=== PATIENT | male | born 1955 | race Caucasian/White ===

== ENCOUNTER 2017-04-21 00:08 | Emergency (ER) | payer MEDICARE, OTHER ==
[~2017-04-21] VITALS: Ht 172.7 cm; Wt 65.0 kg
[~2017-04-21 00:08] MED LIST: CIPR-231 PO; HYDR-3090 PO; LORA-302 PO; TAMS0.4C98 PO
[2017-04-21 00:18] VITALS: BP 169/78; PULSE 65; RESP 16; O2SAT 99
--- NOTE | 2017-04-21 00:33 | ED.REPORT ---
HPI-General Illness Date of Service Apr 21, 2017 ED Provider: Eugenio Palacios MD Pt is a 61 y/o transgender male-->female w/ a hx of kidney stones presenting to the ED c/o right flank pain onset 2 days ago. Pts pain began mid-lower abdominal and is now localized to the right flank. Pt has had similar pain previously with kidney stones. Pt describes the pain as dull and non-radiating. Pt c/o associated mild dysuria. Pt denies hematuria, fever, chills. Nursing Notes Stated Complaint: FLANK PAIN Chief Complaint: Male Abdominal Pain Nursing Notes Reviewed: Yes Allergies: Coded Allergies: No Known Allergies (Verified Allergy, Unknown, 01/02/16) Scheduled Ciprofloxacin (Cipro) 500 Mg Tablet 500 MG PO BID Tamsulosin (Flomax) 0.4 Mg Capsule 0.4 MG PO DAILY for kidney stone, stop once stone is passed Tamsulosin (Flomax) 0.4 Mg Capsule 0.4 MG PO DAILY Scheduled PRN Hydrocodone-Acetaminophen 5-300 mg (Hydrocodone-Acetaminophen 5-300 mg) 1 Each Tablet 1-2 TABLET PO Q4H PRN PRN For Pain Lorazepam (Ativan) 0.5 Mg Tablet 0.5 MG PO HS PRN PRN For Insomnia General Time Seen by MD: 00:28 Chief Complaint Other (flank pain) Hx Obtained From: Patient Arrived By: Walk-in Sudden in Onset?: No Onset Occurred: 2 days ago Symptom Duration: Since onset Location: : Abdomen Quality: Painful Severity: Current: Mild Severity: Maximum: Moderate Past Medical History Past Medical History PTSD Anxiety/Depression Kidney Stones x4 Past Surgical History Hernia repair R knee surgery Rhinoplasty No lithotripsy Smoking History Smoker Current Status UNK Social History Other Social History: Local resident Ambulatory Status Independent Review of Systems Full Review of Systems Constitutional: Denies: Chills, Fever Respiratory: Denies: Non-productive cough, Shortness of breath Cardiovascular: Denies: Chest pain, Dyspnea on exertion GI: Reports: Abdominal pain, Nausea, Denies: Vomiting Male: Reports Dysuria, Reports Flank pain Complete sys rev & neg: except as marked. Physical Exam Vital Signs Vital Signs Date Time Temp Pulse Resp B/P Pulse Ox O2 Delivery O2 Flow Rate FiO2 04/21/17 02:56 56 16 130/77 99 Room Air 04/21/17 00:18 36.6 65 16 169/78 99 Room Air Initial VS: Reviewed, Vital signs abnormal Head / Eyes: Atraumatic, Normocephalic, PERRL ENT: Mucous membranes moist, Conjunctiva normal, No scleral icterus Neck: Supple, Full range of motion Respiratory: Breath sounds normal, Clear to auscultation, No respiratory distress Cardiovascular: Regular rate & rhythm, Heart sounds normal, Intact distal pulses Extremities: Vascular intact, Neuro intact, No swelling Skin: Warm, Dry, No cyanosis Neurologic: Alert, Oriented, Nonfocal Psychiatric: Mood/affect normal, Behavior normal, Normal thought content General/Constitutional: Awake, Alert, No acute distress, Cooperative, Not toxic appearing Abdomen: Atraumatic, Soft, Non-tender, No guarding, No rebound, No distention Back: Full range of motion, Painless range of motion Mild left CVAT Interpretation & Diagnostics Lab Results Interpretation Result Diagram: 04/21/17 0028 04/21/17 0028 Test 04/21/17 00:28 04/21/17 01:30 White Blood Count 10.5th/mm3 (3.8-10.1) Red Blood Count 4.40mil/mm3 (4.40-5.80) Hemoglobin 13.9g/dL (13.8-17.2) Hematocrit 40.6% (41.0-50.0) Mean Corpuscular Volume 92.3fL (81-100) Mean Corpuscular Hemoglobin 31.6pg (27.0-35.0) Mean Corpuscular Hemoglobin Concent 34.2% (32.0-37.0) Red Cell Distribution Width 12.6% (12.3-15.4) Platelet Count 284bil/L (150-400) Neutrophils (%) (Auto) 71.0% (40-74) Lymphocytes (%) (Auto) 16.3% (14-46) Monocytes (%) (Auto) 9.9% (4-12) Eosinophils (%) (Auto) 2.2% (0-5) Basophils (%) (Auto) 0.4% (0-3) Sodium Level 139mEq/L (134-144) Potassium Level 3.8mEq/L (3.5-5.2) Chloride Level 100mEq/L (97-108) Carbon Dioxide Level 21mmol/L (18-29) Blood Urea Nitrogen 18mg/dL (6-24) Creatinine 0.62mg/dL (0.76-1.27) Estimat Glomerular Filtration Rate 141mL/min (>59) Glucose Level 95mg/dL (60-99) Calcium Level 9.2mg/dL (8.5-10.1) Magnesium Level 1.8mg/dL (1.6-2.6) Total Bilirubin 0.4mg/dL (0.0-1.2) Aspartate Amino Transf (AST/SGOT) 35U/L (0-50) Alanine Aminotransferase (ALT/SGPT) 33U/L (0-44) Alkaline Phosphatase 39U/L (25-160) Total Protein 6.8g/dL (6.4-8.4) Albumin 4.3g/dL (3.4-5.0) Lipase 36U/L (13-60) Urine Color Yellow (YELLOW) Urine Appearance Clear (CLEAR,HAZY) Urine pH 6.5 (5.0-8.0) Urine Specific [place] 1.015 (1.003-1.035) Urine Protein Negativemg/dL (NEG,TRACE) Urine Glucose (UA) Negativemg/dL (NEGATIVE) Urine Ketones 40mg/dL (NEGATIVE) Urine Occult Blood Large (NEGATIVE) Urine Nitrite Negative (NEGATIVE) Urine Bilirubin Negative (NEGATIVE) Urine Urobilinogen Normalmg/dL (NORMAL) Urine Leukocyte Esterase Negative (NEGATIVE) Urine RBC >50/hpf (0-2) Urine WBC 0-5/hpf (0-5) Urine Epithelial Cells Occasional/hpf (NONE-MOD) Urine Crystals None seen (NONE SEEN) Urine Bacteria Few/hpf (NONE-FEW) Urine Hyaline Casts None/lpf (NONE) Urine Granular Casts None seen (NONE SEEN) Urine Waxy Casts None seen (NONE SEEN) Urine Red Blood Cell Casts None seen (NONE SEEN) Urine White Blood Cell Casts None seen (NONE SEEN) Urine Mucus Present (None Seen) Urine Trichomonas None seen (NONE SEEN) Urine Yeast None (NONE SEEN) Urinalysis Comment None Urine Culture Reflexed Not indicated Hold Urine Received (Received) Re-Eval/Medical Decision Med Decision/Clinical Course Pt is a 61 y/o transgender male-->female w/ a hx of kidney stones presenting to the ED c/o right flank pain onset 2 days ago. Pts pain began mid-lower abdominal and is now localized to the right flank. Pt has had similar pain previously with kidney stones. Pt describes the pain as dull and non-radiating. Pt c/o associated mild dysuria. Pt denies hematuria, fever, chills. Here in the emergency department the patient is afebrile with stable vital signs examination as above. Meds given: IV fluids, Zofran, Toradol Patient reported dramatic symptomatic improvement. Labs notable as below: CBC: Borderline leukocytosis of 10.5, otherwise unremarkable CMP: Unremarkable, good renal function UA: Large blood, >50 RBC, 0-5 WBC, few bacteria, negative nitrites, not consistent with UTI Overall presentation consistent with renal colic. Previous CT scans have demonstrated presence of kidney stones. At this time patient has good renal function, pain is relatively well controlled, no evidence of urinary tract infection and patient is nontoxic in appearance. I do not feel that repeat imaging is indicated. Patient is then discharged with pain medications as advised to take ibuprofen as well. Vision given urine strainer and prescription for Flomax. Patient has been referred to urology. Patient advised to return immediately for increasing pain, failure to pass a stone, signs of urinary tract infection, abdominal pain and fevers. Serial abdominal examinations remained benign without any findings suggestive of an acute surgical intra-abdominal process. I feel that the patient is appropriate for discharge. Prior to discharge follow-up and return precautions were reviewed in detail with the patient who verbalized understanding and agreement with the plan. The patient was discharged in stable condition. Time of Eval: 02:14 Re-Evaluation/Progress Note: Pt rechecked. Informed pt of plan for treatment. Pt understands and agrees with plan for treatment. F/U instructions and RTER warnings given. All questions addressed. Counseled Regarding: Diagnosis, Lab results, Need for follow-up, When/why to return to ED Discharge & Departure Primary Impression: Kidney stone Additional Impressions: Renal colic Hematuria History of kidney stones Flank pain Disposition: Home Discharge Condition All VS Reviewed: Yes Condition: Stable Patient Instructions: Renal Colic (ED) Additional Instructions: Thank you for seeking care at the emergency room. It is difficult for us to make definitive diagnoses in the ED but we believe that you are experiencing pain related to kidney stones. Our primary goal today in the ED was to evaluate you for any life-threatening conditions. Your evaluation was reassuring. Blood work was normal. Your urine and physical exam is overwhelmingly consistent with a kidney stone. You will be discharged with a prescription for Flomax to help pass the stone. Take this as prescribed. You will also be given Vicodin. Take 1 tab every 6 hours as needed for severe or breakthrough pain. See the instructions below. You should follow-up with a urologist next week. You can call Dr. Story's office to set up an appointment. You should return to the ED immediately if you develop fevers, vomiting, shaking chills, worsening pain, inability to urinate, lightheadedness, weakness or any other concerning signs or symptoms. Thank you for letting us partake in your care today. Referrals: David Benjamin MD (PCP) Zeke Story MD Attestation Portions of this note were transcribed by Basil Bradshaw. I, Dr. Palacios, personally performed the history, physical exam and medical decision-making; I reviewed and confirmed the accuracy of the information in the transcribed note. Signed by Roney Ireland, 04/21/17 - 0100 copies to: David Benjamin MD; Zeke Story MD, Beck O MD Apr 21, 2017 00:33 BASIL BRADSHAW Apr 21, 2017 00:49
[2017-04-21] MEDS ORDERED: 0.9% Sodium Chloride 1,000 ML IV ONE (00:34)
[2017-04-21] MEDS ORDERED: Ondansetron 2 mg/mL 2 mL Inj IVPUSH ONE (00:35)
[2017-04-21 00:39] LABS: BASOPHILS % (AUTO) 0.4 % (0-3); EOSINOPHILS % (AUTO) 2.2 % (0-5); MONOCYTES % (AUTO) 9.9 % (4-12); Mean Corpuscular Hemoglobin 31.6 pg (27.0-35.0); Mean Corpuscular Volume 92.3 fL (81-100); Platelet Count 284 bil/L (150-400)
[2017-04-21] MEDS: HYDROmorphone 0.5 mg/0.5 mL iSecure Syringe IVPUSH PRN ×2 (00:50→02:24)
[2017-04-21 01:05] LABS: Magnesium 1.8 mg/dL (1.6-2.6)
[2017-04-21 02:05] LABS: APPEARANCE,URINE CLEAR (CLEAR,HAZY); COLOR,URINE YELLOW (YELLOW); PH,URINE 6.5 (5.0-8.0)
[2017-04-21 02:06] LABS: OCCULT BLOOD,URINE LARGE (NEGATIVE); UROBILINOGEN,URINE NORMAL (NORMAL)
[2017-04-21] MEDS ORDERED: TAMS0.4C98 PO (02:13)
[2017-04-21] MEDS ORDERED: _HYDROcodone/APAP 5-325 mg Tablet PO PRN (02:15)
[2017-04-21 02:56] VITALS: BP 130/77; PULSE 56; RESP 16; O2SAT 99
== END 2017-04-21 02:55 | disposition home or self-care (01) ==
LOC: SED 00:08
DX: N20.0 Calculus of kidney (principal); F41.9 Anxiety disorder, unspecified; F43.10 Post-traumatic stress disorder, unspecified; F17.200 Nicotine dependence, unspecified, uncomplicated; F12.10 Cannabis abuse, uncomplicated; Z87.442 Personal history of urinary calculi
CPT/HCPCS: 36415; 80053; 81000; 83690; 83735; 85025; 96361; 96374; 96375; 96376; 99285; J1170; J1885; J2405; J7030

== ENCOUNTER 2017-05-08 22:12 | Emergency (ER) | payer OTHER ==
[~2017-05-08] VITALS: Ht 172.7 cm; Wt 63.6 kg
[2017-05-08 22:21] VITALS: BP 140/71; PULSE 80; RESP 16; O2SAT 95
--- NOTE | 2017-05-08 23:02 | ED.REPORT ---
HPI- Male Date of Service May 08, 2017 ED Provider: Ranjan Lei MD Pt is a 61 y/o transgender male to female w/ a hx of chronic kidney stones, presenting to the ED c/o lower abdominal pain onset yesterday morning. He c/o associated hematuria which he states he has been experiencing chronically for many months now caused by multiple kidney stones. Pt denies fever, chills, vomiting. The patient is anatomically a male but is transitioning to become a female and has been taking OTC estriol only for the transition. He denies any sort of attempt at manual genital reconstruction. The last abdominal CT scan was . Nursing Notes Stated Complaint: HEMATURIA Chief Complaint: Male Abdominal Pain Nursing Notes Reviewed: Yes Allergies: Coded Allergies: No Known Allergies (Verified Allergy, Unknown, 01/02/16) Scheduled Ciprofloxacin (Cipro) 500 Mg Tablet 500 MG PO BID Tamsulosin (Flomax) 0.4 Mg Capsule 0.4 MG PO DAILY for kidney stone, stop once stone is passed Tamsulosin (Flomax) 0.4 Mg Capsule 0.4 MG PO DAILY Scheduled PRN Hydrocodone-Acetaminophen 5-300 mg (Hydrocodone-Acetaminophen 5-300 mg) 1 Each Tablet 1-2 TABLET PO Q4H PRN PRN For Pain Lorazepam (Ativan) 0.5 Mg Tablet 0.5 MG PO HS PRN PRN For Insomnia General Time Seen by MD: 22:59 Chief Complaint Abdominal pain... Hx Obtained From: Patient Arrived By: Walk-in Onset Occurred: Yesterday Symptom Duration: Since onset Location: : Abdomen lower Quality: Painful Severity: Current: Mild Severity: Maximum: Mild Past Medical History Past Medical History Notes: The patient goes by "Julia" and has been transitioning from male to female by use of OTC Estriol only. Has plans for minor transformative surgery. Past Medical History PTSD Anxiety/Depression Kidney Stones x4 Kidney cyst Past Surgical History Hernia repair R knee surgery Rhinoplasty No lithotripsy Smoking History Smoker Current Status UNK Social History Other Social History: Local resident Ambulatory Status Independent Review of Systems Constitutional: Denies: Chills, Fever GI: Reports: Abdominal pain, Denies: Diarrhea, Nausea, Vomiting Male: Reports Hematuria Complete sys rev & neg: except as marked. Physical Exam Initial Vital Signs Vital Signs (First) Date Time Temp Pulse Resp B/P Pulse Ox O2 Delivery O2 Flow Rate FiO2 05/08/17 22:21 36.9 80 16 140/71 95 Room Air Initial VS: Reviewed, Vital signs normal Head / Eyes: Atraumatic, Normocephalic, PERRL ENT: Mucous membranes moist, Conjunctiva normal, No scleral icterus Neck: Supple, Full range of motion Respiratory: Breath sounds normal, Clear to auscultation, No respiratory distress Cardiovascular: Regular rate & rhythm, Heart sounds normal, Intact distal pulses Extremities: Vascular intact, Neuro intact, No swelling Skin: Warm, Dry, No cyanosis Neurologic: Alert, Oriented, Nonfocal Psychiatric: Mood/affect normal, Behavior normal, Normal thought content General/Constitutional: Awake, Alert, No acute distress, Well appearing, Cooperative, Not toxic appearing Abdomen: Atraumatic, Soft, No guarding, No rebound, No distention, No palpable mass Mild diffuse abdominal tenderness Back: Full range of motion, Painless range of motion, No CVA tenderness Interpretation & Diagnostics Interpretation & Diagnostics: CT KUB: Conclusion: Moderate right hydronephrosis associated with a 7 mm stone in the proximal right ureter and a 5 mm stone at the right ureterovesical junction Interpreted by John Bello at 00:50 Lab Results Interpretation Test 05/08/17 23:15 Urine Color Bloody (YELLOW) Urine Appearance Cloudy (CLEAR,HAZY) Urine pH 7.0 (5.0-8.0) Urine Specific [place] 1.018 (1.003-1.035) Urine Protein 100mg/dL (NEG,TRACE) Urine Glucose (UA) Negativemg/dL (NEGATIVE) Urine Ketones Negativemg/dL (NEGATIVE) Urine Occult Blood Large (NEGATIVE) Urine Nitrite Negative (NEGATIVE) Urine Bilirubin Negative (NEGATIVE) Urine Urobilinogen Normalmg/dL (NORMAL) Urine Leukocyte Esterase Negative (NEGATIVE) Urine RBC Packed/hpf (0-2) Urine WBC 0-5/hpf (0-5) Urine Epithelial Cells Occasional/hpf (NONE-MOD) Urine Crystals None seen (NONE SEEN) Urine Bacteria None/hpf (NONE-FEW) Urine Hyaline Casts None/lpf (NONE) Urine Granular Casts None seen (NONE SEEN) Urine Waxy Casts None seen (NONE SEEN) Urine Red Blood Cell Casts None seen (NONE SEEN) Urine White Blood Cell Casts None seen (NONE SEEN) Urine Mucus None seen (None Seen) Urine Trichomonas None seen (NONE SEEN) Urine Yeast None (NONE SEEN) Urinalysis Comment None Urine Culture Reflexed Not indicated Re-Eval/Medical Decision Med Decision/Clinical Course 61-year-old anatomical male presents with lower abdominal pain. He has a strong history of kidney stones. CT KUB shows 2 stones in the right ureter with hydronephrosis. The stones measure 3 mm and 7 mm. He states that he has passed a 7 mm stone before at home. He is being discharged home. He is already taking Flomax. He was given prepacks of Zofran and hydrocodone/ acetaminophen. He will follow up with Dr. Lopez as needed for persistent symptoms. Source of Hx: Old records Re-Evaluation/Progress : Time of Eval: 02:30 Patient Status: Condition improved, Moderate relief, Pain improved Re-Evaluation/Progress Note: Pt rechecked. Discussed imaging findings and need for outpatient urology appointment. Informed pt of plan for treatment. Pt understands and agrees with plan for treatment. F/U instructions and RTER warnings given. All questions addressed. Counseled Regarding: Diagnosis, Lab results, Need for follow-up, When/why to return to ED Discharge & Departure Impression: Primary Impression: Right ureteral calculus Additional Impression: Hydronephrosis of right kidney Disposition: Home Discharge Condition All VS Reviewed: Yes Condition: Stable Patient Instructions: Renal Colic (ED) Additional Instructions: F2 stones in the right ureter measuring 3 mm and 7 mm. As you know these can pass on their own. Continue Flomax. Ondansetron as needed for nausea. Hydrocodone/acetaminophen as needed for pain. Drink plenty of fluids. [facility] or with [facility] Lopez at urology if your symptoms persist. Referrals: David Benjamin MD (PCP) Day Lopez MD Attestation Portions of this note were transcribed by Basil Bradshaw. I, Dr. Lei personally performed the history, physical exam and medical decision-making; I reviewed and confirmed the accuracy of the information in the transcribed note. Signed by Roney Ireland, 05/08/17 - [id number] copies to: David Benjamin MD; Day Lopez MD, Howard L MD May 08, 2017 23:02 BASIL BRADSHAW May 08, 2017 23:09
[2017-05-09 00:17] LABS: APPEARANCE,URINE CLOUDY (CLEAR,HAZY); COLOR,URINE BLOODY (YELLOW)
[2017-05-09 00:18] LABS: OCCULT BLOOD,URINE LARGE (NEGATIVE); UROBILINOGEN,URINE NORMAL (NORMAL)
[2017-05-09] MEDS ORDERED: _HYDROcodone/APAP 5-325 mg Tablet PO PRN (02:20)
[2017-05-09] MEDS ORDERED: _Ondansetron ODT 4 mg Tablet PO PRN (02:20)
--- NOTE | 2017-05-09 09:34 | DRSVH ---
PROCEDURE: CT KUB ([id number]) INDICATIONS: hematuria, flank pain TECHNIQUE: Noncontrast 5 mm thick sections acquired from the diaphragms to the symphysis. 5 mm thick coronal an d sagittal reformats were then performed. For radiation dose reduction, the following was used: aut omated exposure control, adjustment of mA and/or kV according to patient size. COMPARISON: [facility], CT, CT KUB, 01/02/2016, 12:12. FINDINGS: Image quality: Excellent. Lung bases: Lung bases are clear. Heart size is normal. Urinary system: Both kidneys are normal in size. 8 mm right proximal ureteral calculus, Hounsfield units 770, with moderate hydronephrosis and proximal hydroureter. There is a 4 mm distal calculus, Ho unsfield units 524, at the ureterovesicular junction with mild to moderate mid and distal hydroureter . Punctate nonobstructing bilateral renal calculi. Bladder wall thickness is normal; no calcified bl adder stones. Right renal cyst is present. Other solid organs: Liver is mildly enlarged. The spleen is normal in size. Gallbladder is unremar kable. Pancreas is normal in contours. No adrenal nodules. Peritoneum and bowel: Unenhanced bowel loops demonstrate normal wall thickness and caliber. No free fluid or air. Colonic diverticula are present. Nodes and vessels: No retroperitoneal or mesenteric adenopathy by size criteria. Aorta and inferior vena cava are normal in caliber. Abdominal wall: No ventral hernias. Pelvis: No free pelvic fluid. No inguinal hernias or adenopathy. Bones: No suspicious bony lesions. No vertebral body compression fractures. IMPRESSION: 1. Obstructing proximal right ureteral and right ureterovesicular junction calculi. 2. Nonobstructing punctate bilateral renal calculi. 3. Colonic diverticulosis. Dictated by: Mirna Nix M.D. on 05/09/2017 at 9:23 Approved by: Mirna Nix M.D. on 05/09/2017 at 9:32
== END 2017-05-09 03:04 | disposition home or self-care (01) ==
LOC: EDBD 22:12 → EDUNIT# 22:12 → SED 22:15
DX: N13.2 Hydronephrosis with renal and ureteral calculous obstruction (principal); Z87.442 Personal history of urinary calculi; F41.8 Other specified anxiety disorders